=== PATIENT | female | born 1990 | race Caucasian/White ===

== ENCOUNTER 2018-01-09 08:46 | Emergency (ER) | payer MEDICAID ==
--- NOTE | 2018-01-09 09:25 | EDM.PDOC ---
ED HPI GENERAL MEDICAL PROBLEM - General Chief Complaint: Neuro Symptoms/Deficits Stated Complaint: LIGHTHEADED; SHAKY Time Seen by Provider: 01/09/18 09:25 Source of Information: Reports: Patient, RN History Limitations: Reports: Other (no medical records) - History of Present Illness INITIAL COMMENTS - FREE TEXT/NARRATIVE: 27 yo female new in the area from [place], [place] now lives in [place], [place]. She is on Methadone and takes an OTC sleep aid that she doesn't know the name of. She has had intermittent tachycardia in the past, but not as severe or prolonged as this time. This began in the middle of the night last night. Is a little light-headed. No recent fever, chest pain, calf pain, SOB, vomiting, or diarrhea. Was referred from her methadone clinic to cardiology recently, but missed the appt and has yet to reschedule. Onset: Today Onset Date: 01/09/18 Onset Time: 03:00 Duration: Hour(s): Location: Reports: Chest Quality: Reports: Other (no pain) Severity: Moderate Improves with: Reports: None Worsens with: Reports: None Context: Reports: Other (uncertain) Associated Symptoms: Denies: Chest Pain, Fever/Chills, Nausea/Vomiting, Shortness of Breath Treatments [employer]: Reports: Other (see below) (none) - Related Data Allergies Allergy/AdvReac Type Severity Reaction Status Date / Time No Known Allergies Allergy Verified 01/09/18 08:56 Home Meds: Home Meds *Methadone 150 mg PO DAILY 01/09/18 [History] Past Medical History Other Cardiovascular History: ABNORMAL EKG'S Psychiatric History: Reports: Addiction, Anxiety - Past Surgical History Other HEENT Surgeries/Procedures: METAL PLATE AND WIRING IN HEAD Social & Family History - Tobacco Use Smoking Status *Q: Unknown Ever Smoked ED ROS GENERAL - Review of Systems Review Of Systems: See Below Constitutional: Reports: No Symptoms HEENT: Reports: No Symptoms Respiratory: Reports: No Symptoms Cardiovascular: Reports: Lightheadedness, Palpitations. Denies: Chest Pain, Dyspnea on Exertion, Orthopnea, Syncope Endocrine: Reports: No Symptoms GI/Abdominal: Reports: No Symptoms : Reports: No Symptoms Musculoskeletal: Reports: No Symptoms Skin: Reports: No Symptoms Neurological: Reports: No Symptoms Psychiatric: Reports: Anxiety (mild) ED EXAM, NEURO - Physical Exam Exam: See Below Exam Limited By: No Limitations General Appearance: Alert, WD/WN, No Apparent Distress, Obese Eye Exam: Bilateral Eye: Normal Inspection Ears: Normal External Exam, Normal Canal, Hearing Grossly Normal, Normal TMs Nose: Normal Inspection, Normal Mucosa, No Blood Throat/Mouth: Normal Inspection, Normal Lips, Normal Oropharynx, Normal Voice, No Airway Compromise Head Exam: Atraumatic, Normocephalic Neck: Normal Inspection, Supple, Non-Tender Respiratory/Chest: No Respiratory Distress, Lungs Clear, Normal Breath Sounds, No Accessory Muscle Use Cardiovascular: Regular Rate, Rhythm, Tachycardia GI/Abdominal: Normal Bowel Sounds, Soft, Non-Tender, No Distention Neurological: Alert, Normal Mood/Affect, CN II-XII Intact, No Motor/Sensory Deficits, Oriented x 3 Back Exam: Normal Inspection. No: CVA Tenderness (R), CVA Tenderness (L) Extremities: Normal Inspection, Normal Range of Motion, Non-Tender, No Pedal Edema Psychiatric: Normal Affect, Normal Mood Skin Exam: Warm, Dry, Intact, Normal Color, No Rash EKG INTERPRETATION EKG Date: 01/09/18 Time: 09:10 Rhythm: NSR Rate (Beats/Min): 124 [place]: Normal P-Wave: Present QRS: Normal ST-T: Normal QT: Prolonged Comparison: NA - No Prior EKG Course - Vital Signs Text/Narrative:: HR came down to under 100/min during the course of this ER visit, feels better. Last Recorded V/S: Last Vital Signs Temp 36.8 C 01/09/18 08:54 Pulse 135 H 01/09/18 08:54 Resp 16 01/09/18 08:54 BP 145/90 H 01/09/18 08:54 Pulse Ox 97 01/09/18 08:54 Orthostatic Blood Pressure [ 142/87 Standing] Orthostatic Blood Pressure [ 132/87 Sitting] Orthostatic Blood Pressure [ 133/82 Supine] - Orders/Labs/Meds Orders: Active Orders 24 hr Category Date Time Status EKG Documentation Completion [RC] ASDIRECTED Care 01/09/18 09:10 Active Orthostatic Vital Signs [RC] ASDIRECTED Care 01/09/18 09:40 Active Lactated Ringers [Ringers, Lactated] 1,000 ml Med 01/09/18 09:39 Active IV BOLUS EKG 12 Lead [EK] Routine Ther 01/09/18 09:09 Ordered Medication Orders Lactated Ringer's (Ringers, Lactated) 1,000 mls @ 1,000 mls/hr IV BOLUS ONE Stop: 01/09/18 10:38 Last Admin: 01/09/18 09:52 Dose: 1,000 mls/hr Labs: Laboratory Tests 01/09/18 01/09/18 01/09/18 Range/Units 09:22 09:42 09:44 WBC 9.0 (4.5-11.0) K/uL RBC 4.37 (3.30-5.50) M/uL Hgb 13.0 (12.0-15.0) g/dL Hct 39.7 (36.0-48.0) % MCV 91 (80-98) fL MCH 30 (27-31) pg MCHC 33 (32-36) % Plt Count 293 (150-400) K/uL Sodium (140-148) mmol/L Potassium (3.6-5.2) mmol/L Chloride (100-108) mmol/L Carbon Dioxide (21-32) mmol/L Anion Gap (5.0-14.0) mmol/L BUN (7-18) mg/dL Creatinine (0.6-1.0) mg/dL Est Cr Clr Drug Dosing mL/min Estimated GFR (MDRD) (>60) Glucose (74-106) mg/dL Calcium (8.5-10.1) mg/dL TSH, Ultra Sensitive (0.358-3.740) uIU/mL Urine Color Yellow Urine Appearance Cloudy Urine pH 6.0 (4.5-8.0) Ur Specific [place] 1.010 (1.008-1.030) Urine Protein Negative (NEGATIVE) mg/dL Urine Glucose (UA) Normal (NEGATIVE) mg/dL Urine Ketones Negative (NEGATIVE) mg/dL Urine Occult Blood Negative (NEGATIVE) Urine Nitrite Negative (NEGATIVE) Urine Bilirubin Negative (NEGATIVE) Urine Urobilinogen Normal (NORMAL) mg/dL Ur Leukocyte Esterase Moderate (NEGATIVE) Urine RBC 0-5 (0-5) Urine WBC 5-10 H (0-5) Ur Epithelial Cells Moderate Amorphous Sediment Not seen Urine Bacteria Many Urine Mucus Not seen Urine Opiates Screen Negative (NEGATIVE) Ur Oxycodone Screen Negative (NEGATIVE) Urine Methadone Screen Positive H (NEGATIVE) Ur Propoxyphene Screen Negative (NEGATIVE) Ur Barbiturates Screen Negative (NEGATIVE) Ur Tricyclics Screen Positive H (NEGATIVE) Ur Phencyclidine Scrn Negative (NEGATIVE) Ur Amphetamine Screen Negative (NEGATIVE) U Methamphetamines Scrn Negative (NEGATIVE) Urine MDMA Screen Negative (NEGATIVE) U Benzodiazepines Scrn Negative (NEGATIVE) U Cocaine Metab Screen Negative (NEGATIVE) U Marijuana (THC) Screen Negative (NEGATIVE) 01/09/18 01/09/18 Range/Units 09:44 09:44 WBC (4.5-11.0) K/uL RBC (3.30-5.50) M/uL Hgb (12.0-15.0) g/dL Hct (36.0-48.0) % MCV (80-98) fL MCH (27-31) pg MCHC (32-36) % Plt Count (150-400) K/uL Sodium 144 (140-148) mmol/L Potassium 3.8 (3.6-5.2) mmol/L Chloride 107 (100-108) mmol/L Carbon Dioxide 26 (21-32) mmol/L Anion Gap 10.7 (5.0-14.0) mmol/L BUN 9 (7-18) mg/dL Creatinine 0.8 (0.6-1.0) mg/dL Est Cr Clr Drug Dosing 108.44 mL/min Estimated GFR (MDRD) > 60 (>60) Glucose 114 H (74-106) mg/dL Calcium 8.9 (8.5-10.1) mg/dL TSH, Ultra Sensitive 1.330 (0.358-3.740) uIU/mL Urine Color Urine Appearance Urine pH (4.5-8.0) Ur Specific [place] (1.008-1.030) Urine Protein (NEGATIVE) mg/dL Urine Glucose (UA) (NEGATIVE) mg/dL Urine Ketones (NEGATIVE) mg/dL Urine Occult Blood (NEGATIVE) Urine Nitrite (NEGATIVE) Urine Bilirubin (NEGATIVE) Urine Urobilinogen (NORMAL) mg/dL Ur Leukocyte Esterase (NEGATIVE) Urine RBC (0-5) Urine WBC (0-5) Ur Epithelial Cells Amorphous Sediment Urine Bacteria Urine Mucus Urine Opiates Screen (NEGATIVE) Ur Oxycodone Screen (NEGATIVE) Urine Methadone Screen (NEGATIVE) Ur Propoxyphene Screen (NEGATIVE) Ur Barbiturates Screen (NEGATIVE) Ur Tricyclics Screen (NEGATIVE) Ur Phencyclidine Scrn (NEGATIVE) Ur Amphetamine Screen (NEGATIVE) U Methamphetamines Scrn (NEGATIVE) Urine MDMA Screen (NEGATIVE) U Benzodiazepines Scrn (NEGATIVE) U Cocaine Metab Screen (NEGATIVE) U Marijuana (THC) Screen (NEGATIVE) Meds: Medications Generic Name Dose Route Start Last Admin Trade Name Mumtaz PRN Reason Stop Dose Admin Lactated Ringer's 1,000 mls @ 1,000 mls/hr 01/09/18 09:39 01/09/18 09:52 Ringers, Lactated IV 01/09/18 10:38 1,000 mls/hr BOLUS ONE Administration Departure - Departure Time of Disposition: 10:45 Disposition: Home, Self-Care 01 Condition: Fair Clinical Impression: Tachycardia, Prolonged Q-T interval on ECG - Discharge Information Referrals: PCP,None [Primary Care Provider] - Forms: ED Department Discharge - My Orders Last 24 Hours: My Active Orders 01/09/18 09:09 EKG 12 Lead [EK] Routine 01/09/18 09:10 EKG Documentation Completion [RC] ASDIRECTED 01/09/18 09:39 Lactated Ringers [Ringers, Lactated] 1,000 ml IV BOLUS 01/09/18 09:40 Orthostatic Vital Signs [RC] ASDIRECTED - Assessment/Plan Last 24 Hours: My Active Orders 01/09/18 09:09 EKG 12 Lead [EK] Routine 01/09/18 09:10 EKG Documentation Completion [RC] ASDIRECTED 01/09/18 09:39 Lactated Ringers [Ringers, Lactated] 1,000 ml IV BOLUS 01/09/18 09:40 Orthostatic Vital Signs [RC] ASDIRECTED
[2018-01-09] MEDS ORDERED: Lactated Ringers 1,000 ML IV ONE (09:39)
== END 2018-01-09 10:59 | disposition home or self-care (01) ==
LOC: JP.ED 08:46
DX: R00.0 Tachycardia, unspecified (principal); I45.81 Long QT syndrome; Z79.899 Other long term (current) drug therapy
CPT/HCPCS: 36415; 80048; 80305; 81001; 84443; 85027; 93005; 96360; 99284; J7120

== ENCOUNTER 2023-01-22 13:22 | Emergency (ER) | payer MEDICAID ==
[2023-01-22] MEDS ORDERED: LORazepam 2 MG/ML SDV IM ONE (13:44)
[2023-01-22] MEDS ORDERED: Metoprolol Tartrate 25 MG Tab PO ONE (14:00)
[2023-01-22 14:35] LABS: ESTIMATED GFR 68 mL/min (>60)
== END 2023-01-22 16:33 | disposition home or self-care (01) ==
LOC: JP.ED 13:22
DX: U07.1 COVID-19 (principal); F41.9 Anxiety disorder, unspecified; R00.0 Tachycardia, unspecified
CPT/HCPCS: 36415; 80053; 80305; 84443; 85025; 93005; 96372; 99283; A9270; J2060

== ENCOUNTER 2023-01-27 01:00 | Emergency (ER) | payer MEDICAID ==
[2023-01-27] MEDS ORDERED: LORazepam 1 MG Tab PO ONE (01:25)
== END 2023-01-27 01:43 | disposition home or self-care (01) ==
LOC: JP.ED 01:00
DX: F41.0 Panic disorder [episodic paroxysmal anxiety] (principal); Z72.0 Tobacco use
CPT/HCPCS: 99284; A9270; 99283

== ENCOUNTER 2023-11-17 09:24 | Emergency (ER) | payer MEDICAID ==
[2023-11-17 09:42] LABS: BASOPHILS ABSOLUTE AUTO 0.06 K/uL (0.00-0.10); BASOPHILS PERCENT AUTO 0.5 % (0.1-1.3); EOSINOPHILS ABSOLUTE AUTO 0.21 K/uL (0.00-0.40); EOSINOPHILS PERCENT AUTO 1.8 % (0.0-5.4); HEMATOCRIT 40.6 % (34.3-46.0); HEMOGLOBIN 13.7 g/dL (11.2-15.5); IMMATURE GRAN ABSOLUTE AUTO 0.04 K/uL (0.00-0.23); IMMATURE GRAN PERCENT AUTO 0.3 % (0.0-0.7); LYMPHOCYTES ABSOLUTE AUTO 5.25 K/uL (0.8-3.3); LYMPHOCYTES PERCENT AUTO 45.1 % (11.4-47.7); MEAN CORPUSCULAR HEMOGLOBIN 30.3 pg (31.6-35.5); MEAN CORPUSCULAR HGB CONC 33.7 g/dL (31.6-35.5); MEAN CORPUSCULAR VOLUME 89.8 fL (81.4-99.0); MONOCYTES PERCENT AUTO 4.3 % (3.3-12.6); NEUTROPHILS ABSOLUTE AUTO 5.59 K/uL (1.0-7.6); PLATELET COUNT,PLT 311 K/uL (130-375); RED BLOOD CELL COUNT 4.52 M/uL (3.77-5.24); WHITE BLOOD CELL COUNT,WBC 11.7 K/uL (3.2-11.0)
[2023-11-17] MEDS: Aspirin 81 MG Tab.Chew PO ONE (09:46)
[2023-11-17] MEDS: LORazepam 0.5 MG Tab PO ONE (09:47)
[2023-11-17 10:09] LABS: ALANINE AMINOTRANSFERASE,ALT 36 U/L (12-78); ALBUMIN 3.6 g/dL (3.4-5.0); ALKALINE PHOSPHATASE 77 U/L (46-116); ASPARTATE AMNIOTRANSFERASE,AST 23 U/L (15-37); BILIRUBIN TOTAL 0.4 mg/dL (0.2-1.0); BLOOD UREA NITROGEN,BUN 17 mg/dL (7-18); CALCIUM 9.1 mg/dL (8.5-10.1); CARBON DIOXIDE,CO2 29 mmol/L (21-32); CHLORIDE,CL 99 mmol/L (100-108); EST CRCL DRUG DOSING (CG) 82.06 mL/min; ESTIMATED GFR 75 mL/min (>60); GLUCOSE RANDOM 161 mg/dL (74-106); PROTEIN TOTAL,TP 7.4 g/dL (6.4-8.2); SODIUM,NA 137 mmol/L (140-148)
[2023-11-17 10:20] LABS: ANION GAP 11.9 mmol/L (5.0-14.0); POTASSIUM,K 2.9 mmol/L (3.6-5.2); TROPONIN I HIGH SENSITIVITY < 4.0 pg/mL (<=60.3)
[2023-11-17] MEDS: Potassium Chloride 20 MEQ Tab.ER PO ONE (10:38)
[2023-11-17 10:57] LABS: AMPHETAMINES SCREEN, URINE NEGATIVE (NEGATIVE); BARBITURATE SCREEN,URINE NEGATIVE (NEGATIVE); BENZODIAZEPINES SCREEN,URINE NEGATIVE (NEGATIVE); METHADONE SCREEN, URINE PRESUMPTIVE POSITIVE (NEGATIVE); METHAMPHETAMINES SCREEN, URINE NEGATIVE (NEGATIVE); OXYCODONE SCREEN,URINE NEGATIVE (NEGATIVE); PROPOXYPHENE SCREEN,URINE NEGATIVE (NEGATIVE); THC SCREEN,URINE 50 NG/ML PRESUMPTIVE POSITIVE (NEGATIVE)
== END 2023-11-17 12:03 | disposition home or self-care (01) ==
LOC: JP.ED 09:24
DX: J32.9 Chronic sinusitis, unspecified (principal); F41.0 Panic disorder [episodic paroxysmal anxiety]; Z79.899 Other long term (current) drug therapy
CPT/HCPCS: 36415; 80053; 80305-QW; 84484; 85025; 93005; 99284; 99285; A9270-GY